=== PATIENT | male | born 1985 | race Caucasian/White ===

== ENCOUNTER 2025-05-18 11:34 | Outpatient (CLI) | payer SELFPAY | END 2025-05-18 11:35 | disposition home or self-care (01) | LOC: CSHMRI 11:34 | PROVIDERS: ATTEND Hospitalist | DX: I63.9 Cerebral infarction, unspecified (principal); I63.511 Cerebral infarction due to unspecified occlusion or stenosis of right middle cerebral artery | CPT/HCPCS: 70544; 70551 ==